=== PATIENT | female | born 1995 | race African-American/Black ===

== ENCOUNTER 2020-01-28 19:42 | Emergency (ER) | payer OTHER, SELFPAY ==
[2020-01-28 19:50] VITALS: BP 133/71; PULSE 125; RESP 16; TEMP 37.7; O2SAT 99; BMI 28.3
--- NOTE | 2020-01-28 20:06 | ED_ITS ---
HPI - Headache <Angelique Hayward PA-C - Last Filed: 01/28/20 20:57> General Chief Complaint: Headache Stated Complaint: vomiting, headache Time Seen by Provider: 01/28/20 19:49 Source: patient Mode of arrival: Ambulatory Limitations: no limitations History of Present Illness HPI Narrative: This is a tired, stressed and tearful appearing obese 24-year-old female who presents to the emergency department with her older sister complaining of throbbing headache for 2 days and vomiting for 2 days. She reports she was generally feeling okay prior to two days ago although had been eating less due to increased stress in her relationship and life, and then Saturday night, just before she went to bed she started to feel very nauseous and began throwing up. She has continued to throw up frequently since that time, too many times to count in the day.She has been unable to keep down any food or any fluids for 2 days she reports. Her headache began the day after her vomiting, and feels like it is on both sides of her head and the front and throbbing. It has become really bad, to the point where when she even felt like her vision was affected. She has had headaches before but has never had migraines or headaches like this. She also has been experiencing some bilateral low back pain for the last couple of days. She has also been having chills for the last 2 days and complains of lower body leg pain achiness. She states that around a month ago she had a miscarriage at about 6 weeks of . She does not want to talk about this, but states that she has not had a period since this time, she was seen in an emergency department, and states they did not do a pelvic exam or on ultrasound at that time, she has not had follow-up with a PCP or [facility] since that time. She is not sure exactly when her miscarriage was. She states she was recently diagnosed with the urinary tract infection and took antibiotics for this, and now feels she has no symptoms. She also reports she was hospitalized with severe anemia and had a blood transfusion last year in [place]. She reports her periods are occasionally very heavy but not always. She does not know of any specific blood disorder diagnosis that she has. She denies cough, shortness of breath, chest pain, abdominal pain, dysuria, or any other symptoms MD Complaint: headache Onset (ago): day(s) (2) Onset description: gradual Location: right, left and frontal Severity: severe Severity scale (1-10): 7 Quality: throbbing and different than previous headaches Relieving factors: nothing Exacerbating factors: none Context: other (began after vomiting frequently for a day) Associated symptoms: fever, nausea, vomiting and vision loss (describes temporary vision change but cannot describe) Related Data Previous Rx's Medication Instructions Recorded fluconazole [Diflucan] 100 mg PO DAILY #2 tab 01/28/20 nitrofurantoin monohyd/m-cryst 100 mg PO Q12H 5 Days #10 cap 01/28/20 [Macrobid] prenat.vits,guerline,ghp-lnka-bkxcy 1 tab PO DAILY #90 tab 01/28/20 Allergies Allergy/AdvReac Type Severity Reaction Status Date / Time No Known Drug Allergies Allergy Verified 01/28/20 19:54 Patient History <JOVANNY Wynn Last Filed: 01/28/20 20:57> Social History Smoking Status: Never smoker Smoking Status: Never smoker alcohol intake frequency: 0-2 drinks per day Substance Use Type: does not use Exam <JOVANNY Wynn Last Filed: 01/28/20 20:57> Initial Vital Signs Initial Vital Signs: Vital Signs Temperature 99.9 F H 01/28/20 19:50 Pulse Rate 125 H 01/28/20 19:50 Respiratory Rate 16 01/28/20 19:50 Blood Pressure 133/71 01/28/20 19:50 Pulse Oximetry 99 01/28/20 19:50 <Jared Mclain DO - Last Filed: 01/29/20 02:02> Initial Vital Signs Initial Vital Signs: Vital Signs Temperature 99.9 F H 01/28/20 19:50 Pulse Rate 125 H 01/28/20 19:50 Respiratory Rate 16 01/28/20 19:50 Blood Pressure 133/71 01/28/20 19:50 Pulse Oximetry 99 01/28/20 19:50 Course <JOVANNY Wynn Last Filed: 01/28/20 20:57> Orders Ordered: ED Orders 01/28/20 20:04 Complete Blood Count AUTO DIFF Stat Comprehensive Metabolic Panel Stat HCG Quantitative /Beta subunit Stat Influenza A & B (PCR) Stat Lactate (Lactic Acid) Urgent Lipase Stat 01/28/20 20:39 US OB <= 14 weeks fetus Stat 01/28/20 22:03 Urinalysis and Microscopic Stat Urine Culture Stat Discontinued Medications Acetaminophen (Tylenol) 975 mg PO NOW ONE Stop: 01/28/20 20:07 Last Admin: 01/28/20 20:24 Dose: 975 mg Documented by: MARIA ESTHERL Sodium Chloride (Normal Saline 0.9%) 1,000 mls @ 1,000 mls/hr IV BOLUS ONE Stop: 01/28/20 21:05 Last Infusion: 01/28/20 21:09 Dose: 0 mls/hr Documented by: MARIA ESTHERL Admin: 01/28/20 20:10 Dose: 1,000 mls/hr Documented by: MARIA ESTHERL Sodium Chloride (Normal Saline 0.9%) 1,000 mls @ 1,000 mls/hr IV BOLUS ONE Stop: 01/28/20 21:10 Last Infusion: 01/28/20 23:00 Dose: 1,000 mls/hr Documented by: Admin: 01/28/20 22:00 Dose: 1,000 mls/hr Documented by: AVELINA Nitrofurantoin Macrocrystals (Macrobid 100 Mg Capsule) 100 mg PO NOW ONE Stop: 01/28/20 23:03 Last Admin: 01/28/20 23:28 Dose: 100 mg Documented by: AVELINA Ondansetron HCl (Zofran) 4 mg IV NOW ONE Stop: 01/28/20 20:07 Last Admin: 01/28/20 20:10 Dose: 4 mg Documented by: AVELINA Ondansetron HCl (Zofran Odt Prepack) 1 bottle [facility] [place] [place] SEEINSTR ONE Stop: 01/28/20 23:03 Last Admin: 01/28/20 23:28 Dose: 1 bottle Documented by: AVELINA Vital Signs Vital signs: Vital Signs - 8 hr 01/28/20 19:50 01/28/20 20:24 01/28/20 22:00 Temperature 99.9 F H 99.9 F H Pulse Rate 125 H 108 H Respiratory Rate 16 16 Blood Pressure 133/71 Blood Pressure [Left Arm] 109/55 L Pulse Oximetry 99 99 01/28/20 23:00 Temperature Pulse Rate 97 H Respiratory Rate 17 Blood Pressure 112/54 L Blood Pressure [Left Arm] Pulse Oximetry 99 <Jared Mclain DO - Last Filed: 01/29/20 02:02> Orders Ordered: ED Orders 01/28/20 20:04 Complete Blood Count AUTO DIFF Stat Comprehensive Metabolic Panel Stat HCG Quantitative /Beta subunit Stat Influenza A & B (PCR) Stat Lactate (Lactic Acid) Urgent Lipase Stat 01/28/20 20:39 US OB <= 14 weeks fetus Stat 01/28/20 22:03 Urinalysis and Microscopic Stat Urine Culture Stat Discontinued Medications Acetaminophen (Tylenol) 975 mg PO NOW ONE Stop: 01/28/20 20:07 Last Admin: 01/28/20 20:24 Dose: 975 mg Documented by: MARTINFARL Sodium Chloride (Normal Saline 0.9%) 1,000 mls @ 1,000 mls/hr IV BOLUS ONE Stop: 01/28/20 21:05 Last Infusion: 01/28/20 21:09 Dose: 0 mls/hr Documented by: Admin: 01/28/20 20:10 Dose: 1,000 mls/hr Documented by: MARTINFARL Sodium Chloride (Normal Saline 0.9%) 1,000 mls @ 1,000 mls/hr IV BOLUS ONE Stop: 01/28/20 21:10 Last Infusion: 01/28/20 23:00 Dose: 1,000 mls/hr Documented by: Admin: 01/28/20 22:00 Dose: 1,000 mls/hr Documented by: MARTINFARL Nitrofurantoin Macrocrystals (Macrobid 100 Mg Capsule) 100 mg PO NOW ONE Stop: 01/28/20 23:03 Last Admin: 01/28/20 23:28 Dose: 100 mg Documented by: MARIA ESTHERL Ondansetron HCl (Zofran) 4 mg IV NOW ONE Stop: 01/28/20 20:07 Last Admin: 01/28/20 20:10 Dose: 4 mg Documented by: AVELNIA Ondansetron HCl (Zofran Odt Prepack) 1 bottle [facility] SEEINSTR ONE Stop: 01/28/20 23:03 Last Admin: 01/28/20 23:28 Dose: 1 bottle Documented by: AVELINA Vital Signs Vital signs: Vital Signs - 8 hr 01/28/20 19:50 01/28/20 20:24 01/28/20 22:00 Temperature 99.9 F H 99.9 F H Pulse Rate 125 H 108 H Respiratory Rate 16 16 Blood Pressure 133/71 Blood Pressure [Left Arm] 109/55 L Pulse Oximetry 99 99 01/28/20 23:00 Temperature Pulse Rate 97 H Respiratory Rate 17 Blood Pressure 112/54 L Blood Pressure [Left Arm] Pulse Oximetry 99 MDM - Headache <Angelique Hayward PA-C - Last Filed: 01/28/20 20:57> Differential Diagnosis Differential diagnosis: Likely migraine, headache and other (Sepsis, retained products of conception, influenza, COVID-19, intractable vomiting) Lab Data Attestation: I reviewed the patient's lab results. Result diagrams: 01/28/20 20:04 01/28/20 20:04 Labs: Lab Results 01/28/20 01/28/20 01/28/20 Range/Units 20:04 20:04 20:04 WBC 13.0 H (4.5-11.0) X10^3/uL RBC 4.94 (4.0-5.2) X10^6/uL Hgb 9.7 L (12.0-16.0) g/dL Hct 30.8 L (36-46) % MCV 62.4 L (80-100) fL MCH 19.6 L (26-34) PG MCHC 31.5 (30-36) % RDW 18.1 H (11.6-14.8) % Plt Count 359 (150-400) X10^3/uL Neut % (Auto) 86.3 H (50-75) % Lymph % (Auto) 6.3 L (25-40) % [place] % (Auto) 7.2 (3-14) % Eos % (Auto) 0.0 L (2-4) % Baso % (Auto) 0.2 (0-2) % Neut # (Auto) 83615 H (3483-3974) /uL Lymph # (Auto) 800 L (6227-1650) /uL [place] # (Auto) 900 (0-900) /uL Eos # (Auto) 0 (0-450) /uL Baso # (Auto) 0 (0-100) /uL RBC Morphology Not Reportable Poikilocytosis 1+ H Anisocytosis 2+ H Microcytosis 3+ H Sodium 131 L (137-145) mmol/L Potassium 3.8 (3.4-5.1) mmol/L Chloride 97 L (98-107) mmol/L Carbon Dioxide 20 L (22-32) mmol/L BUN 8 (7-17) mg/dL Creatinine 0.51 L (0.52-1.04) mg/dL Estimated GFR > 60.0 (>60) mL/min BUN/Creatinine Ratio 15.7 (6-22) Glucose 112 H (70-100) mg/dL Lactate (0.7-2.1) mmol/L Calcium 9.6 (8.4-10.2) mg/dL Total Bilirubin 1.1 (0.2-1.3) mg/dL AST 66 H (14-36) IU/L ALT 54 H (<35) IU/L Alkaline Phosphatase 77 (38-126) U/L Total Protein 9.2 H (6.3-8.2) g/dL Albumin 4.7 (3.5-5.0) g/dL Globulin 4.5 H (1.7-4.1) g/dL Albumin/Globulin Ratio 1.0 (1.0-2.8) Lipase (23-300) U/L HCG, Quant mIU/mL Urine Color Urine Appearance Urine pH (4.5-8.0) Ur Specific [place] (1.000-1.035) Urine Protein (Negative) Urine Glucose (UA) (Negative) g/dL Urine Ketones (NEGATIVE) Urine Occult Blood (Negative) Urine Nitrate (Negative) Urine Bilirubin (NEGATIVE) Urine Urobilinogen (0.2) E.U./dL Ur Leukocyte Esterase (NEGATIVE) Urine RBC (0-5/HPF) Urine WBC (0-5/HPF) Ur Squamous Epith Cells (0-5/HPF) Urine Bacteria (None) Urine Yeast (None) Ur Culture Indicated? Influenza A (RT-PCR) Flu a negative (NEGATIVE) Influenza B (RT-PCR) Flu b negative (NEGATIVE) 01/28/20 01/28/20 01/28/20 Range/Units 20:04 20:04 20:04 WBC (4.5-11.0) X10^3/uL RBC (4.0-5.2) X10^6/uL Hgb (12.0-16.0) g/dL Hct (36-46) % MCV (80-100) fL MCH (26-34) PG MCHC (30-36) % RDW (11.6-14.8) % Plt Count (150-400) X10^3/uL Neut % (Auto) (50-75) % Lymph % (Auto) (25-40) % [place] % (Auto) (3-14) % Eos % (Auto) (2-4) % Baso % (Auto) (0-2) % Neut # (Auto) (1578-0822) /uL Lymph # (Auto) (3109-2554) /uL [place] # (Auto) (0-900) /uL Eos # (Auto) (0-450) /uL Baso # (Auto) (0-100) /uL RBC Morphology Poikilocytosis Anisocytosis Microcytosis Sodium (137-145) mmol/L Potassium (3.4-5.1) mmol/L Chloride (98-107) mmol/L Carbon Dioxide (22-32) mmol/L BUN (7-17) mg/dL Creatinine (0.52-1.04) mg/dL Estimated GFR (>60) mL/min BUN/Creatinine Ratio (6-22) Glucose (70-100) mg/dL Lactate 1.4 (0.7-2.1) mmol/L Calcium (8.4-10.2) mg/dL Total Bilirubin (0.2-1.3) mg/dL AST (14-36) IU/L ALT (<35) IU/L Alkaline Phosphatase (38-126) U/L Total Protein (6.3-8.2) g/dL Albumin (3.5-5.0) g/dL Globulin (1.7-4.1) g/dL Albumin/Globulin Ratio (1.0-2.8) Lipase 48 (23-300) U/L HCG, Quant 53719 mIU/mL Urine Color Urine Appearance Urine pH (4.5-8.0) Ur Specific [place] (1.000-1.035) Urine Protein (Negative) Urine Glucose (UA) (Negative) g/dL Urine Ketones (NEGATIVE) Urine Occult Blood (Negative) Urine Nitrate (Negative) Urine Bilirubin (NEGATIVE) Urine Urobilinogen (0.2) E.U./dL Ur Leukocyte Esterase (NEGATIVE) Urine RBC (0-5/HPF) Urine WBC (0-5/HPF) Ur Squamous Epith Cells (0-5/HPF) Urine Bacteria (None) Urine Yeast (None) Ur Culture Indicated? Influenza A (RT-PCR) (NEGATIVE) Influenza B (RT-PCR) (NEGATIVE) 01/28/20 Range/Units 22:03 WBC (4.5-11.0) X10^3/uL RBC (4.0-5.2) X10^6/uL Hgb (12.0-16.0) g/dL Hct (36-46) % MCV (80-100) fL MCH (26-34) PG MCHC (30-36) % RDW (11.6-14.8) % Plt Count (150-400) X10^3/uL Neut % (Auto) (50-75) % Lymph % (Auto) (25-40) % [place] % (Auto) (3-14) % Eos % (Auto) (2-4) % Baso % (Auto) (0-2) % Neut # (Auto) (9554-4187) /uL Lymph # (Auto) (3912-4662) /uL [place] # (Auto) (0-900) /uL Eos # (Auto) (0-450) /uL Baso # (Auto) (0-100) /uL RBC Morphology Poikilocytosis Anisocytosis Microcytosis Sodium (137-145) mmol/L Potassium (3.4-5.1) mmol/L Chloride (98-107) mmol/L Carbon Dioxide (22-32) mmol/L BUN (7-17) mg/dL Creatinine (0.52-1.04) mg/dL Estimated GFR (>60) mL/min BUN/Creatinine Ratio (6-22) Glucose (70-100) mg/dL Lactate (0.7-2.1) mmol/L Calcium (8.4-10.2) mg/dL Total Bilirubin (0.2-1.3) mg/dL AST (14-36) IU/L ALT (<35) IU/L Alkaline Phosphatase (38-126) U/L Total Protein (6.3-8.2) g/dL Albumin (3.5-5.0) g/dL Globulin (1.7-4.1) g/dL Albumin/Globulin Ratio (1.0-2.8) Lipase (23-300) U/L HCG, Quant mIU/mL Urine Color Yellow Urine Appearance Cloudy Urine pH 6.0 (4.5-8.0) Ur Specific [place] 1.025 (1.000-1.035) Urine Protein 2+ H (Negative) Urine Glucose (UA) Negative (Negative) g/dL Urine Ketones 3+ H (NEGATIVE) Urine Occult Blood 3+ H (Negative) Urine Nitrate Positive H (Negative) Urine Bilirubin Negative (NEGATIVE) Urine Urobilinogen 1.0 (0.2) E.U./dL Ur Leukocyte Esterase 2+ H (NEGATIVE) Urine RBC 1-5/hpf (0-5/HPF) Urine WBC 30-100/hpf H (0-5/HPF) Ur Squamous Epith Cells 1-5 /hpf (0-5/HPF) Urine Bacteria Many (>30) H (None) Urine Yeast 1-5/hpf H (None) Ur Culture Indicated? Specimen cultured Influenza A (RT-PCR) (NEGATIVE) Influenza B (RT-PCR) (NEGATIVE) MDM Narrative Medical decision making narrative: This is a tired and stressed appearing obese 24-year-old female who presents to the emergency department with her older sister complaining of nausea, vomiting, low back pain, and throbbing headache for 2 days. History is notable for recent UTI, miscarriage at approximately 6 weeks in the last month, and a significant stressors in her life, that have led her to be eating very little recently. She has not been eating or drinking for the last 2 days due to her nausea and vomiting. Based on her history/presentation and exam there was some concern for retained products of conception, versus other infectious etiology that may be causing her nausea, vomiting, tachycardia, and low back pain. Influenza and COVID-19 are considered and tested for. Differential diagnosis that were considered include: Influenza, COVID-19, retained products of conception, sepsis, complicated UTI, migraine. <Jared Mclain DO - Last Filed: 01/29/20 02:02> Lab Data Labs: Lab Results 01/28/20 01/28/20 01/28/20 Range/Units 20:04 20:04 20:04 WBC 13.0 H (4.5-11.0) X10^3/uL RBC 4.94 (4.0-5.2) X10^6/uL Hgb 9.7 L (12.0-16.0) g/dL Hct 30.8 L (36-46) % MCV 62.4 L (80-100) fL MCH 19.6 L (26-34) PG MCHC 31.5 (30-36) % RDW 18.1 H (11.6-14.8) % Plt Count 359 (150-400) X10^3/uL Neut % (Auto) 86.3 H (50-75) % Lymph % (Auto) 6.3 L (25-40) % [place] % (Auto) 7.2 (3-14) % Eos % (Auto) 0.0 L (2-4) % Baso % (Auto) 0.2 (0-2) % Neut # (Auto) 71482 H (4879-4995) /uL Lymph # (Auto) 800 L (4041-5804) /uL [place] # (Auto) 900 (0-900) /uL Eos # (Auto) 0 (0-450) /uL Baso # (Auto) 0 (0-100) /uL RBC Morphology Not Reportable Poikilocytosis 1+ H Anisocytosis 2+ H Microcytosis 3+ H Sodium 131 L (137-145) mmol/L Potassium 3.8 (3.4-5.1) mmol/L Chloride 97 L (98-107) mmol/L Carbon Dioxide 20 L (22-32) mmol/L BUN 8 (7-17) mg/dL Creatinine 0.51 L (0.52-1.04) mg/dL Estimated GFR > 60.0 (>60) mL/min BUN/Creatinine Ratio 15.7 (6-22) Glucose 112 H (70-100) mg/dL Lactate (0.7-2.1) mmol/L Calcium 9.6 (8.4-10.2) mg/dL Total Bilirubin 1.1 (0.2-1.3) mg/dL AST 66 H (14-36) IU/L ALT 54 H (<35) IU/L Alkaline Phosphatase 77 (38-126) U/L Total Protein 9.2 H (6.3-8.2) g/dL Albumin 4.7 (3.5-5.0) g/dL Globulin 4.5 H (1.7-4.1) g/dL Albumin/Globulin Ratio 1.0 (1.0-2.8) Lipase (23-300) U/L HCG, Quant mIU/mL Urine Color Urine Appearance Urine pH (4.5-8.0) Ur Specific [place] (1.000-1.035) Urine Protein (Negative) Urine Glucose (UA) (Negative) g/dL Urine Ketones (NEGATIVE) Urine Occult Blood (Negative) Urine Nitrate (Negative) Urine Bilirubin (NEGATIVE) Urine Urobilinogen (0.2) E.U./dL Ur Leukocyte Esterase (NEGATIVE) Urine RBC (0-5/HPF) Urine WBC (0-5/HPF) Ur Squamous Epith Cells (0-5/HPF) Urine Bacteria (None) Urine Yeast (None) Ur Culture Indicated? Influenza A (RT-PCR) Flu a negative (NEGATIVE) Influenza B (RT-PCR) Flu b negative (NEGATIVE) 01/28/20 01/28/20 01/28/20 Range/Units 20:04 20:04 20:04 WBC (4.5-11.0) X10^3/uL RBC (4.0-5.2) X10^6/uL Hgb (12.0-16.0) g/dL Hct (36-46) % MCV (80-100) fL MCH (26-34) PG MCHC (30-36) % RDW (11.6-14.8) % Plt Count (150-400) X10^3/uL Neut % (Auto) (50-75) % Lymph % (Auto) (25-40) % [place] % (Auto) (3-14) % Eos % (Auto) (2-4) % Baso % (Auto) (0-2) % Neut # (Auto) (8810-3550) /uL Lymph # (Auto) (6351-9214) /uL [place] # (Auto) (0-900) /uL Eos # (Auto) (0-450) /uL Baso # (Auto) (0-100) /uL RBC Morphology Poikilocytosis Anisocytosis Microcytosis Sodium (137-145) mmol/L Potassium (3.4-5.1) mmol/L Chloride (98-107) mmol/L Carbon Dioxide (22-32) mmol/L BUN (7-17) mg/dL Creatinine (0.52-1.04) mg/dL Estimated GFR (>60) mL/min BUN/Creatinine Ratio (6-22) Glucose (70-100) mg/dL Lactate 1.4 (0.7-2.1) mmol/L Calcium (8.4-10.2) mg/dL Total Bilirubin (0.2-1.3) mg/dL AST (14-36) IU/L ALT (<35) IU/L Alkaline Phosphatase (38-126) U/L Total Protein (6.3-8.2) g/dL Albumin (3.5-5.0) g/dL Globulin (1.7-4.1) g/dL Albumin/Globulin Ratio (1.0-2.8) Lipase 48 (23-300) U/L HCG, Quant 95968 mIU/mL Urine Color Urine Appearance Urine pH (4.5-8.0) Ur Specific [place] (1.000-1.035) Urine Protein (Negative) Urine Glucose (UA) (Negative) g/dL Urine Ketones (NEGATIVE) Urine Occult Blood (Negative) Urine Nitrate (Negative) Urine Bilirubin (NEGATIVE) Urine Urobilinogen (0.2) E.U./dL Ur Leukocyte Esterase (NEGATIVE) Urine RBC (0-5/HPF) Urine WBC (0-5/HPF) Ur Squamous Epith Cells (0-5/HPF) Urine Bacteria (None) Urine Yeast (None) Ur Culture Indicated? Influenza A (RT-PCR) (NEGATIVE) Influenza B (RT-PCR) (NEGATIVE) 01/28/20 Range/Units 22:03 WBC (4.5-11.0) X10^3/uL RBC (4.0-5.2) X10^6/uL Hgb (12.0-16.0) g/dL Hct (36-46) % MCV (80-100) fL MCH (26-34) PG MCHC (30-36) % RDW (11.6-14.8) % Plt Count (150-400) X10^3/uL Neut % (Auto) (50-75) % Lymph % (Auto) (25-40) % [place] % (Auto) (3-14) % Eos % (Auto) (2-4) % Baso % (Auto) (0-2) % Neut # (Auto) (5484-1360) /uL Lymph # (Auto) (2192-5955) /uL [place] # (Auto) (0-900) /uL Eos # (Auto) (0-450) /uL Baso # (Auto) (0-100) /uL RBC Morphology Poikilocytosis Anisocytosis Microcytosis Sodium (137-145) mmol/L Potassium (3.4-5.1) mmol/L Chloride (98-107) mmol/L Carbon Dioxide (22-32) mmol/L BUN (7-17) mg/dL Creatinine (0.52-1.04) mg/dL Estimated GFR (>60) mL/min BUN/Creatinine Ratio (6-22) Glucose (70-100) mg/dL Lactate (0.7-2.1) mmol/L Calcium (8.4-10.2) mg/dL Total Bilirubin (0.2-1.3) mg/dL AST (14-36) IU/L ALT (<35) IU/L Alkaline Phosphatase (38-126) U/L Total Protein (6.3-8.2) g/dL Albumin (3.5-5.0) g/dL Globulin (1.7-4.1) g/dL Albumin/Globulin Ratio (1.0-2.8) Lipase (23-300) U/L HCG, Quant mIU/mL Urine Color Yellow Urine Appearance Cloudy Urine pH 6.0 (4.5-8.0) Ur Specific [place] 1.025 (1.000-1.035) Urine Protein 2+ H (Negative) Urine Glucose (UA) Negative (Negative) g/dL Urine Ketones 3+ H (NEGATIVE) Urine Occult Blood 3+ H (Negative) Urine Nitrate Positive H (Negative) Urine Bilirubin Negative (NEGATIVE) Urine Urobilinogen 1.0 (0.2) E.U./dL Ur Leukocyte Esterase 2+ H (NEGATIVE) Urine RBC 1-5/hpf (0-5/HPF) Urine WBC 30-100/hpf H (0-5/HPF) Ur Squamous Epith Cells 1-5 /hpf (0-5/HPF) Urine Bacteria Many (>30) H (None) Urine Yeast 1-5/hpf H (None) Ur Culture Indicated? Specimen cultured Influenza A (RT-PCR) (NEGATIVE) Influenza B (RT-PCR) (NEGATIVE) Imaging Data US - OB: Radiologist's Impression: [address] [address] Ultrasound Report Signed Patient: Yudelka Alcantara MMR#: [id number] : 1995Acct:[id number] Age/Sex: te of Service: 01/28/20 Loc: ED Accession Number: [id number] Procedure: US OB <= 14 weeks fetus Ordering Provider: Angelique Hayward P.A-C PROCEDURE: US OB <= 14 WEEKS FETUS INDICATIONS: POSSIBLE MISCARRIAGE OUTSIDE/PRIOR DATING DATA: Last menstrual period (LMP): Unknown. LMP-based estimated date of delivery (SONI): Unknown. First dating scan (date and location): 01/28/20, [facility] Estimated date of delivery (SONI) from first dating scan: 08/04/20. TECHNIQUE: Real-time scanning was performed of the fetus and maternal pelvic organs, with image documentation. COMPARISON: None. FINDINGS: Embryo: Olean-rump length measuring 6.7 cm, 13 weeks zero days, with heartbeat measuring 192 beats per minute Measurement variability in dating: +/- 4 weeks by LMP, +/- 7 days by mean sac diameter (use before 6 weeks gestation if crown-rump length not able to be measured), +/- 5 days by crown-rump length (up to 8 weeks 6 days gestation), +/- 7 days by crown-rump length (up to 13 weeks 6 days gestation). Maternal organs: Ovaries not visualized. Limited images through the kidneys demonstrate no hydronephrosis. IMPRESSION: Living late first trimester intrauterine with crown-rump length of heartbeat measuring 13 weeks zero days. Dictated by: Nirav Zaldivar M.D. on 01/28/2020 at 21:52 Approved by: Nirav Zaldivar M.D. on 01/28/2020 at 21:54 MDM Narrative Medical decision making narrative: Received turned over from the APC. Reviewed patient's history and physical. Reviewed patient's labs. Ultrasound pending. Ultrasound resulted with a IUP at 13 weeks EGA. When I asked the patient regarding this she stated that when she was seen at the outside facility at the beginning of last month she was seen and was told that she had a urinary tract infection. She did not have an ultrasound performed at that time. Has not followed up with OB since then. She states that she told us today that she had had a miscarriage because she states that she ?felt like I was not anymore?. She denies any vaginal bleeding. I did talk with her today about her IUP and fact that she was 13 weeks EGA. She was nitrite positive on her urine today so will treat her with antibiotics. No signs of pyelonephritis. Sent home with prescription for vitamins and also Zofran for her nausea. She was also given phone numbers to contact an area OB group to establish care. She was given return precautions and follow-up instructions. She expressed understanding and agreement. Discharge Plan Departure Patient Disposition: Home Clinical Impression: Nausea and vomiting in , Yeast infection Qualifiers: Weeks of gestation: 13 weeks Qualified Code(s): Z3A.13 - 13 weeks gestation of Headache Qualifiers: Headache type: unspecified Headache chronicity pattern: unspecified pattern Intractability: not intractable Qualified Code(s): R51 - Headache Urinary tract infection Qualifiers: Urinary tract infection type: site unspecified Hematuria presence: without hematuria Qualified Code(s): N39.0 - Urinary tract infection, site not specified Discharge Date/Time: 01/28/20 23:00 Instructions: Nausea of (Alternative Therapy) Activity Restrictions/Additional Instructions: Use the nausea medication as needed and as directed. I recommend that tomorrow you contact the [facility] at [phone]. They can help you with stab wishing a primary provider and also an OB provider. We did test you for coronavirus. This will take 2-5 days to return. We will contact you for both positive and negative results. Until then recommend that you wash her hands frequently and self quarantine yourself. Be sure to increase your fluid intake. Return to the emergency department for any new or worsening symptoms. Prescriptions: New prenat.vits,guerline,igu-gunx-yvcnz Tablet 1 tab PO DAILY Qty: 90 RF: 2 nitrofurantoin monohyd/m-cryst [Macrobid] 100 mg capsule 100 mg PO Q12H 5 Days Qty: 10 RF: 0 fluconazole [Diflucan] 100 mg tablet 100 mg PO DAILY Qty: 2 RF: 0
[2020-01-28] MEDS: ONDANSETRON 4 MG/2 ML INJ IV (20:10)
[2020-01-28] MEDS: SODIUM CHLORIDE 0.9% 1,000 ML 1000 ML IV ×2 (20:10→22:00)
[2020-01-28 20:24] VITALS: TEMP 37.7
[2020-01-28] MEDS: ACETAMINOPHEN 325 MG TABLET 975 MG PO (20:24)
[2020-01-28 20:27] LABS: Add Manual Diff / Slide Review NO; Basophils Absolute Auto 0 /uL (0-100); Basophils Percent Auto 0.2 % (0-2); Eosinophils Absolute Auto 0 /uL (0-450); Hematocrit 30.8 % (36-46); Hemoglobin 9.7 g/dL (12.0-16.0); Lymphocytes Absolute Auto 800 /uL (1100-4500); Lymphocytes Percent Auto 6.3 % (25-40); Mean Corpuscular HGB Conc 31.5 % (30-36); Mean Corpuscular Hemoglobin 19.6 PG (26-34); Mean Corpuscular Volume 62.4 fL (80-100); Monocytes Absolute Auto 900 /uL (0-900); Monocytes Percent Auto 7.2 % (3-14); Neutrophils Absolute Auto 11200 /uL (1500-7000); Neutrophils Percent Auto 86.3 % (50-75); Platelet Count 359 X10^3/uL (150-400); Red Blood Cell Count 4.94 X10^6/uL (4.0-5.2); Red Cell Distribution Width 18.1 % (11.6-14.8)
[2020-01-28 20:35] LABS: Lactate (Lactic Acid) 1.4 mmol/L (0.7-2.1)
[2020-01-28 20:36] LABS: Alanine Aminotransferase 54 IU/L (<35); Albumin 4.7 g/dL (3.5-5.0); Alkaline Phosphatase 77 U/L (38-126); Aspartate Aminotransferase 66 IU/L (14-36); BUN Creatinine Ratio 15.7 (6-22); Bilirubin Total 1.1 mg/dL (0.2-1.3); Blood Urea Nitrogen 8 mg/dL (7-17); Calcium 9.6 mg/dL (8.4-10.2); Carbon Dioxide 20 mmol/L (22-32); Chloride 97 mmol/L (98-107); Estimated Glomerular Filt Rate > 60.0 mL/min (>60); Globulin 4.5 g/dL (1.7-4.1); Glucose 112 mg/dL (70-100); Lipase 48 U/L (23-300); Potassium 3.8 mmol/L (3.4-5.1); Sodium 131 mmol/L (137-145); Total Protein 9.2 g/dL (6.3-8.2)
[2020-01-28 20:38] LABS: HEMOLYSIS 138 (0-50)
--- NOTE | 2020-01-28 20:39 | DI.US.S_ITS ---
PROCEDURE: US OB <= 14 WEEKS FETUS INDICATIONS: POSSIBLE MISCARRIAGE OUTSIDE/PRIOR DATING DATA: Last menstrual period (LMP): Unknown. LMP-based estimated date of delivery (SONI): Unknown. First dating scan (date and location): 01/28/20, [facility] Estimated date of delivery (SONI) from first dating scan: 08/04/20. TECHNIQUE: Real-time scanning was performed of the fetus and maternal pelvic organs, with image documentation. COMPARISON: None. FINDINGS: Embryo: [place]-rump length measuring 6.7 cm, 13 weeks zero days, with heartbeat measuring 192 beats per minute Measurement variability in dating: +/- 4 weeks by LMP, +/- 7 days by mean sac diameter (use before 6 weeks gestation if crown-rump length not able to be measured), +/- 5 days by crown-rump length (up to 8 weeks 6 days gestation), +/- 7 days by crown-rump length (up to 13 weeks 6 days gestation). Maternal organs: Ovaries not visualized. Limited images through the kidneys demonstrate no hydronephrosis. IMPRESSION: Living late first trimester intrauterine with crown-rump length of heartbeat measuring 13 weeks zero days. Dictated by: Nirav Zaldivar M.D. on 01/28/2020 at 21:52 Approved by: Nirav Zaldivar M.D. on 01/28/2020 at 21:54
[2020-01-28 20:42] LABS: Anisocytosis 2+; Microcytosis 3+; Poikilocytosis 1+
[2020-01-28 21:24] LABS: Influenza A - CEPHEID Flu A NEGATIVE (NEGATIVE); Influenza B - CEPHEID Flu B NEGATIVE (NEGATIVE)
[2020-01-28 22:00] VITALS: BP 109/55; PULSE 108; RESP 16; O2SAT 99
[2020-01-28 22:24] LABS: Bilirubin Urine UA NEGATIVE (NEGATIVE); Color Urine UA YELLOW; Glucose Urine UA NEGATIVE (Negative); Ketones Urine UA 3+ (NEGATIVE); Leukocyte Esterase Urine UA 2+ (NEGATIVE); Nitrite Urine UA POSITIVE (Negative); Occult Blood Urine UA 3+ (Negative); Protein Urine UA 2+ (Negative); Specific Gravity Urine UA 1.025 (1.000-1.035)
[2020-01-28 22:32] LABS: HCG Quantitative /Beta subunit 40654 mIU/mL
[2020-01-28 22:37] LABS: Appearance Urine UA Cloudy
[2020-01-28 23:00] VITALS: BP 112/54; PULSE 97; RESP 17; O2SAT 99
[2020-01-28 23:00] LABS: Bacteria Urine Many (>30); RBC Urine 1-5/HPF (0-5/HPF); Squamous Epithelial Cell Urine 1-5 /HPF (0-5/HPF); WBC Urine 30-100/HPF (0-5/HPF)
[2020-01-28 23:01] LABS: Culture Indicated Urine Specimen Cultured
[2020-01-28] MEDS: NITROFURANTOIN ER 100 MG CAPSULE PO (23:28)
[2020-01-28] MEDS: ONDANSETRON 4 MG ODT PREPACK 1 BOTTLE MISC (23:28)
[2020-02-01 13:10] LABS: COVID19 Sendout Not Detected (Not Detected)
== END 2020-01-28 23:00 | disposition home or self-care (01) ==
PROVIDERS: Student in an Organized Health Care Education/Training Program; Emergency Provider Emergency Medicine
DX: Z03.818 Encounter for observation for suspected exposure to other biological agents ruled out (principal); O21.9 Vomiting of pregnancy, unspecified; O98.811 Other maternal infectious and parasitic diseases complicating pregnancy, first trimester; B37.9 Candidiasis, unspecified; R51 Headache; M54.5 Low back pain; N39.0 Urinary tract infection, site not specified; R68.89 Other general symptoms and signs; Z3A.13 13 weeks gestation of pregnancy
CPT/HCPCS: 36415; 76801; 80053; 81001; 83605; 83690; 84702; 85025; 87077; 87086; 87186; 87502; 87635; 96361; 96374; 99284; J2405